=== PATIENT | female | born 1975 | race Caucasian/White ===

== ENCOUNTER → 2017-06-10 | Outpatient (CLI) | payer OTHER ==
[~2017-06-10] MED LIST: ADAP0.1C5 TOP; AMPH30TA2 PO; BUPRENORPHIN-NALOXON SL; CIPR-255 PO; CYCL5TAB PO; TRAZ50TA35; ZLF/100 PO
== END | disposition home or self-care (01) ==
LOC: C.LAB 01:10
DX: Z02.83 Encounter for blood-alcohol and blood-drug test (principal)